=== PATIENT | male | born 1960 | race Two or more races ===

== ENCOUNTER 2022-08-20 21:26 | Emergency (ER) | payer MEDICAID, OTHER ==
[~2022-08-20] VITALS: Ht 172.7 cm; Wt 110.0 kg
[2022-08-20] MEDS ORDERED: hydrALAZINE HCL 20 MG/ML VL IV ONE (22:15)
[2022-08-20] MEDS ORDERED: MORPHINE SULFATE 4 MG/ML SYR/VIAL IV ONE (22:15)
[2022-08-20] MEDS ORDERED: ONDANSETRON HCL 4 MG/2 ML VIAL ONE (23:12)
[2022-08-20 23:22] LABS: Basophils # (auto) 0.1 10 ^3/uL (0-0.2); Basophils % (auto) 0.5 % (0.0-2.0); Eosinophils # (auto) 0 10 ^3/uL (0-0.8); Eosinophils % (auto) 0.1 % (0.0-7.0); Hematocrit 41.9 % (41.0-53.0); Hemoglobin 14.2 g/dL (13.5-17.5); Lymphocytes # (auto) 1.1 10 ^3/uL (0.4-5.4); Lymphocytes % (auto) 9.8 % (10.0-50.0); Mean Corpuscular Hemoglobin 30.4 pg (28.0-32.0); Mean Corpuscular Hgb Conc. 33.8 g/dL (32.0-36.0); Mean Corpuscular Volume 89.8 fL (80.0-100.0); Monocytes # (auto) 0.7 10 ^3/uL (0-1.3); Monocytes % (auto) 5.8 % (0.0-12.0); Neutrophils # (auto) 9.7 10 ^3/uL (1.6-8.6); Neutrophils % (auto) 83.8 % (37.0-80.0); Red Blood Cells 4.67 10^6/uL (4.5-5.90); Red Cell Distribution Width 13.6 % (11.8-14.3); White Blood Cell 11.5 10^3/uL (4.4-10.8)
[2022-08-20] MEDS ORDERED: ONDANSETRON HCL 4 MG/2 ML VIAL IV ONE (23:30)
[2022-08-20 23:45] LABS: Albumin 3.5 g/dL (3.4-5.0); BUN/Creatinine Ratio 14.9; Calcium 8.1 mg/dL (8.5-10.1); Potassium 3.3 mmol/L (3.5-5.1)
[2022-08-20 23:48] LABS: Bilirubin, Total 0.5 mg/dL (0.2-1.0); Total Protein 7.9 g/dL (6.4-8.2)
[2022-08-21] MEDS ORDERED: hydrALAZINE HCL 20 MG/ML VL IV ONE
[2022-08-21] MEDS ORDERED: KETOROLAC TROMETH 30 MG/ML 1ML VIAL IV ONE (01:30)
[2022-08-21] MEDS ORDERED: KETOROLAC TROMETH 60MG/2ML VIAL IM ONE (01:30)
[2022-08-21] MEDS ORDERED: ONDANSETRON HCL 4 MG/2 ML VIAL IV ONE (02:00)
[2022-08-21 02:51] VITALS: BP 199/62
== END 2022-08-21 03:07 | disposition home or self-care (01) ==
LOC: EDBD 21:26 → ER 21:29
DX: R51.9 Headache, unspecified (principal); E11.9 Type 2 diabetes mellitus without complications; R42 Dizziness and giddiness
CPT/HCPCS: 36415; 70450; 80053; 83880; 84484; 85025; 93005; 96374; 96375; 96376; 99285; J0360; J1885; J2270; J2405

== ENCOUNTER 2022-08-21 18:41 | Inpatient (IN) | payer MEDICAID ==
[~2022-08-21] VITALS: Ht 180.3 cm; Wt 127.2 kg
[2022-08-21] MEDS ORDERED: SODIUM CHLORIDE 0.9% 1,000 ML IV ONE (19:30)
[2022-08-21] MEDS ORDERED: VANCOMYCIN PER PHARMACY 1,000 MG IV SCH (19:30)
[2022-08-21] MEDS ORDERED: SODIUM CHLORIDE 0.9% 3,550 ML IV ONE (19:30)
[2022-08-21 19:47] LABS: Basophils # (auto) 0.1 10 ^3/uL (0-0.2); Basophils % (auto) 0.3 % (0.0-2.0); Eosinophils # (auto) 0.1 10 ^3/uL (0-0.8); Eosinophils % (auto) 0.6 % (0.0-7.0); Hematocrit 43.7 % (41.0-53.0); Hemoglobin 14.4 g/dL (13.5-17.5); Lymphocytes # (auto) 2.8 10 ^3/uL (0.4-5.4); Lymphocytes % (auto) 15.3 % (10.0-50.0); Mean Corpuscular Hemoglobin 29.6 pg (28.0-32.0); Mean Corpuscular Volume 89.7 fL (80.0-100.0); Monocytes # (auto) 1.7 10 ^3/uL (0-1.3); Monocytes % (auto) 9.4 % (0.0-12.0); Neutrophils # (auto) 13.6 10 ^3/uL (1.6-8.6); Neutrophils % (auto) 74.4 % (37.0-80.0); Red Blood Cells 4.87 10^6/uL (4.5-5.90); Red Cell Distribution Width 13.8 % (11.8-14.3); White Blood Cell 18.2 10^3/uL (4.4-10.8)
[2022-08-21] MEDS ORDERED: VANCOMYCIN 1GM/250ML 250 ML IV ONE (20:15)
[2022-08-21 20:33] LABS: Albumin 3.5 g/dL (3.4-5.0); BUN/Creatinine Ratio 11.2; Calcium 8.5 mg/dL (8.5-10.1); Magnesium 1.7 mg/dL (1.6-2.6); Potassium 3.1 mmol/L (3.5-5.1)
[2022-08-21 20:36] LABS: Bilirubin, Total 0.8 mg/dL (0.2-1.0); Total Protein 7.6 g/dL (6.4-8.2)
[2022-08-21 21:00] LABS: Lactic Acid w/Reflex 3.1 mmol/L (0.4-2.0)
[2022-08-21] MEDS ORDERED: METOCLOPRAMIDE HCL 5MG/ml INJ 2ml VIAL IV ONE (21:15)
[2022-08-21] MEDS ORDERED: diphenhdrAMINE HCL 50 MG/1 ML VL IV ONE (21:15)
[2022-08-21] MEDS ORDERED: KETOROLAC TROMETH 30 MG/ML 1ML VIAL IV ONE (21:15)
[2022-08-21] MEDS: PIPERACILLIN-TAZO 4.5GM 100 ML IV SCH (22:00)
[2022-08-22 00:54] LABS: BUN/Creatinine Ratio 12.3; Calcium 7.7 mg/dL (8.5-10.1)
[2022-08-22 00:57] LABS: Bilirubin, Total 0.8 mg/dL (0.2-1.0)
[2022-08-22] MEDS ORDERED: POTASSIUM EFFERVESENT TAB 25 MEQ PO ONE (01:30)
[2022-08-22] MEDS ORDERED: ACETAMINOPHEN 325 MG TAB PO PRN (05:00)
[2022-08-22] MEDS ORDERED: DEXTROSE (50%) 50ML SYRG IV PRN (05:00)
[2022-08-22] MEDS ORDERED: DOCUSATE SOD 100 MG CAP PO PRN (05:00)
[2022-08-22] MEDS ORDERED: ALBUMIN 25% 100 ML IV ONE (05:00)
[2022-08-22] MEDS ORDERED: NITROGLYCERIN 0.4 MG SL TAB SL PRN (05:45)
[2022-08-22] MEDS ORDERED: MORPHINE SULFATE INJ 2 MG/ml SYRG IV PRN (05:45)
[2022-08-22 06:09] LABS: Basophils # (auto) 0.1 10 ^3/uL (0-0.2); Basophils % (auto) 0.9 % (0.0-2.0); Eosinophils # (auto) 0.3 10 ^3/uL (0-0.8); Hematocrit 39.1 % (41.0-53.0); Lymphocytes # (auto) 2.6 10 ^3/uL (0.4-5.4); Lymphocytes % (auto) 19.7 % (10.0-50.0); Mean Corpuscular Hgb Conc. 33.1 g/dL (32.0-36.0); Mean Corpuscular Volume 90.6 fL (80.0-100.0); Monocytes # (auto) 1.8 10 ^3/uL (0-1.3); Monocytes % (auto) 13.2 % (0.0-12.0); Neutrophils # (auto) 8.6 10 ^3/uL (1.6-8.6); Neutrophils % (auto) 64.2 % (37.0-80.0); Nucleated Red Blood Cells % 0.1 %; Red Blood Cells 4.32 10^6/uL (4.5-5.90); Red Cell Distribution Width 13.5 % (11.8-14.3); White Blood Cell 13.4 10^3/uL (4.4-10.8)
[2022-08-22 06:25] LABS: Albumin 2.8 g/dL (3.4-5.0); BUN/Creatinine Ratio 12.2; Potassium 3.7 mmol/L (3.5-5.1)
[2022-08-22 06:28] LABS: Bilirubin, Total 1.1 mg/dL (0.2-1.0); Total Protein 6.7 g/dL (6.4-8.2)
[2022-08-22] MEDS: ACCU-CHEK COMFORT CURVE STRIP VI SCH ×3 (06:37→18:07)
[2022-08-22] MEDS: InsuLIN REG 1unit/0.01ml Soln (100units/ml) SC SCH ×3 (06:49→18:11)
[2022-08-22] MEDS: POTASSIUM CHL 20MEQ/100ML 100 ML IV SCH ×2 (09:23→12:23)
[2022-08-22] MEDS: PIPERACILLIN-TAZO 4.5GM 100 ML IV SCH ×3 (09:24→23:59)
[2022-08-22] MEDS: HYDROcodone-ACET 5/325MG TAB PO PRN (09:47)
[2022-08-22] MEDS ORDERED: METOPROLOL TARTRATE 50 MG TAB PO SCH (10:00)
[2022-08-22 10:17] LABS: Urine Bacteria MANY /hpf (None Seen); Urine Blood 2+ /uL (Negative); Urine Specific Gravity 1.014 (1.001-1.035); Urine WBC 424 /hpf (0 - 3); Urine WBC Clumps PRESENT /hpf (None Seen)
[2022-08-22] MEDS ORDERED: POTASSIUM CHL 20MEQ/100ML 100 ML IV SCH (12:15)
[2022-08-22] MEDS: HEPARIN SODIUM (PORCINE) 5000 UNITS/ML 1ML VIAL SC SCH ×2 (12:16→21:37)
[2022-08-22] MEDS: FAMOTIDINE (10MG/ML) 2ML VL IV SCH (12:20)
[2022-08-22] MEDS: VANCOMYCIN 1GM/250ML 250 ML IV SCH (14:53)
[2022-08-22] MEDS: hydrALAZINE HCL 20 MG/ML VL IV PRN (17:16)
[2022-08-22] MEDS: ONDANSETRON HCL 4 MG/2 ML VIAL IV PRN (17:17)
[2022-08-22] MEDS: SODIUM CHLORIDE 0.9% 1,000 ML IV SCH (21:40)
[2022-08-22 22:00] VITALS: BP 195/86
[2022-08-23] MEDS: ACCU-CHEK COMFORT CURVE STRIP VI SCH ×5 (00:26→23:35)
[2022-08-23] MEDS: InsuLIN REG 1unit/0.01ml Soln (100units/ml) SC SCH ×5 (00:30→23:36)
[2022-08-23 05:31] VITALS: BP 154/93
[2022-08-23 05:54] LABS: Basophils # (auto) 0.1 10 ^3/uL (0-0.2); Basophils % (auto) 0.5 % (0.0-2.0); Eosinophils # (auto) 0.2 10 ^3/uL (0-0.8); Eosinophils % (auto) 2.1 % (0.0-7.0); Hematocrit 37.4 % (41.0-53.0); Hemoglobin 12.4 g/dL (13.5-17.5); Lymphocytes # (auto) 2.6 10 ^3/uL (0.4-5.4); Lymphocytes % (auto) 22.5 % (10.0-50.0); Mean Corpuscular Hemoglobin 30.1 pg (28.0-32.0); Mean Corpuscular Hgb Conc. 33.2 g/dL (32.0-36.0); Mean Corpuscular Volume 90.8 fL (80.0-100.0); Monocytes # (auto) 1.3 10 ^3/uL (0-1.3); Monocytes % (auto) 11.7 % (0.0-12.0); Neutrophils # (auto) 7.2 10 ^3/uL (1.6-8.6); Neutrophils % (auto) 63.2 % (37.0-80.0); Red Blood Cells 4.11 10^6/uL (4.5-5.90); Red Cell Distribution Width 13.8 % (11.8-14.3); White Blood Cell 11.5 10^3/uL (4.4-10.8)
[2022-08-23 06:03] LABS: Calcium 7.7 mg/dL (8.5-10.1); Potassium 3.3 mmol/L (3.5-5.1)
[2022-08-23 06:08] LABS: BUN/Creatinine Ratio 7.3; Total Protein 6.3 g/dL (6.4-8.2)
[2022-08-23] MEDS: PIPERACILLIN-TAZO 4.5GM 100 ML IV SCH ×4 (06:26→22:06)
[2022-08-23 09:00] VITALS: BP_SYST 154; BP_SYST 171; BP_DIAS 77; BP_DIAS 93
[2022-08-23] MEDS ORDERED: POTA-180 PO (10:17)
[2022-08-23] MEDS ORDERED: DOXA1TAB50 PO (10:17)
[2022-08-23] MEDS ORDERED: INSU75IN2 SC (10:17)
[2022-08-23] MEDS ORDERED: METF-372 PO (10:17)
[2022-08-23] MEDS ORDERED: DILT-14 PO (10:17)
[2022-08-23] MEDS ORDERED: GABA300C10 PO (10:17)
[2022-08-23] MEDS ORDERED: LOSA-39 PO (10:17)
[2022-08-23] MEDS ORDERED: FURO40TA4 PO (10:17)
[2022-08-23] MEDS: FAMOTIDINE (10MG/ML) 2ML VL IV SCH (11:35)
[2022-08-23] MEDS: hydrALAZINE HCL 20 MG/ML VL IV PRN ×2 (11:35)
[2022-08-23] MEDS: VANCOMYCIN 1GM/250ML 250 ML IV SCH (11:36)
[2022-08-23] MEDS: HEPARIN SODIUM (PORCINE) 5000 UNITS/ML 1ML VIAL SC SCH ×2 (11:42→22:08)
[2022-08-23 12:41] VITALS: BP 179/66
[2022-08-23] MEDS ORDERED: DILT60TA PO (13:01)
[2022-08-23] MEDS ORDERED: TAM04C PO (13:01)
[2022-08-23] MEDS ORDERED: LISI40TA11 PO (13:01)
[2022-08-23] MEDS ORDERED: METO-159 PO (13:01)
[2022-08-23] MEDS ORDERED: METOPROLOL SUCCINATE XL 50 MG TAB PO ONE (14:00)
[2022-08-23] MEDS ORDERED: POTASSIUM CHL 20 Meq TABLET PO ONE (14:00)
[2022-08-23] MEDS ORDERED: FUROSEMIDE 40 MG/4 ML VIAL IV ONE (14:00)
[2022-08-23] MEDS: SODIUM CHLORIDE 0.9% 1,000 ML IV SCH ×2 (14:20)
[2022-08-23] MEDS ORDERED: FUROSEMIDE 40 MG TAB PO ONE (15:00)
[2022-08-23 17:00] VITALS: BP 173/87
[2022-08-23 19:29] LABS: Cholesterol 76 mg/dL (< 200)
[2022-08-23 19:31] LABS: HDL Cholesterol 28 mg/dL (40-59); LDL Cholesterol 40 mg/dL (< 100); Triglycerides 116 mg/dL (< 150)
[2022-08-23 22:00] VITALS: BP 122/44
[2022-08-23] MEDS: POTASSIUM CHL 10 Meq TABLET PO SCH (22:06)
[2022-08-23] MEDS: LISINOPRIL 20 MG TAB PO SCH (22:09)
[2022-08-23] MEDS: GENTAMICIN OPTH sol 0.3% 5ml LEFTEYE SCH (22:19)
[2022-08-24 05:00] VITALS: BP 150/77
[2022-08-24] MEDS: PIPERACILLIN-TAZO 4.5GM 100 ML IV SCH ×3 (05:38→23:02)
[2022-08-24] MEDS: GENTAMICIN OPTH sol 0.3% 5ml LEFTEYE SCH ×4 (05:38→22:59)
[2022-08-24] MEDS: ACCU-CHEK COMFORT CURVE STRIP VI SCH ×3 (05:54→18:04)
[2022-08-24] MEDS: InsuLIN REG 1unit/0.01ml Soln (100units/ml) SC SCH ×3 (05:56→18:05)
[2022-08-24] MEDS: SODIUM CHLORIDE 0.9% 1,000 ML IV SCH ×2 (06:19→23:40)
[2022-08-24 07:18] LABS: BUN/Creatinine Ratio 7.2; Calcium 8.1 mg/dL (8.5-10.1); Potassium 3.7 mmol/L (3.5-5.1)
[2022-08-24 09:00] VITALS: BP 165/63
[2022-08-24] MEDS ORDERED: MAGNESIUM SULFATE 1GM/100ML 100 ML IV ONE (09:30)
[2022-08-24] MEDS ORDERED: POTASSIUM CHL 20 Meq TABLET PO SCH (10:00)
[2022-08-24] MEDS ORDERED: FUROSEMIDE 40 MG/4 ML VIAL IV SCH (10:00)
[2022-08-24] MEDS: POTASSIUM CHL 10 Meq TABLET PO SCH ×2 (10:22→23:00)
[2022-08-24] MEDS: LISINOPRIL 20 MG TAB PO SCH ×2 (10:23→23:00)
[2022-08-24] MEDS: FUROSEMIDE 40 MG TAB PO SCH (10:23)
[2022-08-24] MEDS: METOPROLOL SUCCINATE XL 50 MG TAB PO SCH (10:24)
[2022-08-24] MEDS: HEPARIN SODIUM (PORCINE) 5000 UNITS/ML 1ML VIAL SC SCH ×2 (10:28→23:01)
[2022-08-24] MEDS: HYDROcodone-ACET 5/325MG TAB PO PRN (12:41)
[2022-08-24] MEDS: hydrALAZINE HCL 20 MG/ML VL IV PRN (12:41)
[2022-08-24 13:00] VITALS: BP 160/78
[2022-08-24 17:00] VITALS: BP 159/61
[2022-08-24 22:00] VITALS: BP 162/60
[2022-08-25] MEDS: ACCU-CHEK COMFORT CURVE STRIP VI SCH ×4 (00:21→17:49)
[2022-08-25] MEDS: InsuLIN REG 1unit/0.01ml Soln (100units/ml) SC SCH ×4 (00:26→17:49)
[2022-08-25] MEDS: hydrALAZINE HCL 20 MG/ML VL IV PRN ×2 (02:38→17:11)
[2022-08-25 05:00] VITALS: BP 158/49
[2022-08-25] MEDS: PIPERACILLIN-TAZO 4.5GM 100 ML IV SCH ×3 (06:04→21:32)
[2022-08-25] MEDS: GENTAMICIN OPTH sol 0.3% 5ml LEFTEYE SCH ×4 (06:06→21:33)
[2022-08-25] MEDS: ONDANSETRON HCL 4 MG/2 ML VIAL IV PRN (06:24)
[2022-08-25 09:11] VITALS: BP 156/62
[2022-08-25] MEDS: HEPARIN SODIUM (PORCINE) 5000 UNITS/ML 1ML VIAL SC SCH ×2 (09:43→21:34)
[2022-08-25] MEDS: FUROSEMIDE 40 MG TAB PO SCH (10:08)
[2022-08-25] MEDS: METOPROLOL SUCCINATE XL 50 MG TAB PO SCH (10:08)
[2022-08-25] MEDS: LISINOPRIL 20 MG TAB PO SCH ×2 (10:09→21:33)
[2022-08-25] MEDS: POTASSIUM CHL 10 Meq TABLET PO SCH ×2 (10:10→21:33)
[2022-08-25 13:30] VITALS: BP 162/60
[2022-08-25 16:30] VITALS: BP 170/90
[2022-08-25] MEDS: SODIUM CHLORIDE 0.9% 1,000 ML IV SCH (17:11)
[2022-08-25 21:30] VITALS: BP 163/64
[2022-08-26] MEDS: InsuLIN REG 1unit/0.01ml Soln (100units/ml) SC SCH ×4 (00:37→18:24)
[2022-08-26 05:00] VITALS: BP 148/59
[2022-08-26] MEDS: ACCU-CHEK COMFORT CURVE STRIP VI SCH ×4 (05:52→18:25)
[2022-08-26] MEDS: PIPERACILLIN-TAZO 4.5GM 100 ML IV SCH ×3 (05:56→22:51)
[2022-08-26] MEDS: GENTAMICIN OPTH sol 0.3% 5ml LEFTEYE SCH ×4 (05:56→22:51)
[2022-08-26 09:00] VITALS: BP 146/62
[2022-08-26] MEDS: SODIUM CHLORIDE 0.9% 1,000 ML IV SCH (09:00)
[2022-08-26] MEDS: LISINOPRIL 20 MG TAB PO SCH ×2 (09:12→22:54)
[2022-08-26] MEDS: POTASSIUM CHL 10 Meq TABLET PO SCH ×2 (09:13→22:53)
[2022-08-26] MEDS: METOPROLOL SUCCINATE XL 50 MG TAB PO SCH (09:13)
[2022-08-26] MEDS: FUROSEMIDE 40 MG TAB PO SCH (09:14)
[2022-08-26] MEDS: hydrALAZINE HCL 20 MG/ML VL IV PRN ×2 (09:14→17:42)
[2022-08-26 09:19] LABS: INR 1.12 (0.9-1.15); Partial Thromboplastin Time 29.5 sec (24.6-33.4)
[2022-08-26] MEDS: HEPARIN SODIUM (PORCINE) 5000 UNITS/ML 1ML VIAL SC SCH ×2 (09:24→22:00)
[2022-08-26 14:30] VITALS: BP 144/60
[2022-08-26 17:10] VITALS: BP 160/61
[2022-08-26] MEDS: HYDROcodone-ACET 5/325MG TAB PO PRN (17:41)
[2022-08-26 22:00] VITALS: BP 159/64
[2022-08-26 23:55] LABS: Urine Bacteria NONE SEEN /hpf (None Seen); Urine Blood 3+ /uL (Negative); Urine Specific Gravity 1.016 (1.001-1.035); Urine WBC 90 /hpf (0 - 3)
[2022-08-27] MEDS: ACCU-CHEK COMFORT CURVE STRIP VI SCH ×4 (00:38→16:51)
[2022-08-27] MEDS: InsuLIN REG 1unit/0.01ml Soln (100units/ml) SC SCH ×4 (00:44→16:52)
[2022-08-27] MEDS: hydrALAZINE HCL 20 MG/ML VL IV PRN (04:19)
[2022-08-27 05:00] VITALS: BP 155/77
[2022-08-27 05:14] LABS: Basophils # (auto) 0 10 ^3/uL (0-0.2); Basophils % (auto) 0.5 % (0.0-2.0); Eosinophils # (auto) 0.4 10 ^3/uL (0-0.8); Eosinophils % (auto) 4.2 % (0.0-7.0); Hematocrit 36.7 % (41.0-53.0); Hemoglobin 12.6 g/dL (13.5-17.5); Lymphocytes # (auto) 2.2 10 ^3/uL (0.4-5.4); Lymphocytes % (auto) 22.1 % (10.0-50.0); Mean Corpuscular Hemoglobin 30.5 pg (28.0-32.0); Mean Corpuscular Hgb Conc. 34.3 g/dL (32.0-36.0); Mean Corpuscular Volume 88.8 fL (80.0-100.0); Monocytes % (auto) 10.7 % (0.0-12.0); Neutrophils # (auto) 6.1 10 ^3/uL (1.6-8.6); Neutrophils % (auto) 62.5 % (37.0-80.0); Red Blood Cells 4.14 10^6/uL (4.5-5.90); Red Cell Distribution Width 13.5 % (11.8-14.3); White Blood Cell 9.7 10^3/uL (4.4-10.8)
[2022-08-27 05:34] LABS: BUN/Creatinine Ratio 10.1; Calcium 7.9 mg/dL (8.5-10.1); Potassium 3.6 mmol/L (3.5-5.1)
[2022-08-27] MEDS: GENTAMICIN OPTH sol 0.3% 5ml LEFTEYE SCH ×3 (05:39→17:31)
[2022-08-27] MEDS: PIPERACILLIN-TAZO 4.5GM 100 ML IV SCH (05:41)
[2022-08-27 09:00] VITALS: BP 109/52
[2022-08-27] MEDS: HEPARIN SODIUM (PORCINE) 5000 UNITS/ML 1ML VIAL SC SCH (09:33)
[2022-08-27] MEDS: METOPROLOL SUCCINATE XL 50 MG TAB PO SCH (09:34)
[2022-08-27] MEDS: FUROSEMIDE 40 MG TAB PO SCH (09:35)
[2022-08-27] MEDS: LISINOPRIL 20 MG TAB PO SCH (09:36)
[2022-08-27] MEDS: POTASSIUM CHL 10 Meq TABLET PO SCH (09:36)
[2022-08-27 12:34] VITALS: BP 154/68
[2022-08-27 17:15] VITALS: BP 143/71
[2022-08-27 19:30] VITALS: BP 133/68
[2022-08-28] MEDS ORDERED: POTASSIUM CHL 20 Meq TABLET PO SCH (10:00)
== END 2022-08-27 21:40 | disposition short-term general hospital (02) | DRG 424 ==
LOC: ER 18:43 → TELE 08-22 05:33 → TELE-EAST 08-22 18:47
PROVIDERS: ADMIT Nurse Practitioner Family; ATTEND Hospitalist
DX: D35.2 Benign neoplasm of pituitary gland (principal); U07.1 COVID-19; E11.40 Type 2 diabetes mellitus with diabetic neuropathy, unspecified; I95.9 Hypotension, unspecified; I11.9 Hypertensive heart disease without heart failure; D44.4 Neoplasm of uncertain behavior of craniopharyngeal duct; E88.09 Other disorders of plasma-protein metabolism, not elsewhere classified; E83.51 Hypocalcemia; E86.0 Dehydration; D32.9 Benign neoplasm of meninges, unspecified; E11.65 Type 2 diabetes mellitus with hyperglycemia; E66.01 Morbid (severe) obesity due to excess calories; E87.6 Hypokalemia; I16.0 Hypertensive urgency; N39.0 Urinary tract infection, site not specified; M47.816 Spondylosis without myelopathy or radiculopathy, lumbar region; Z20.822 Contact with and (suspected) exposure to COVID-19; H49.9 Unspecified paralytic strabismus; G43.909 Migraine, unspecified, not intractable, without status migrainosus; F17.200 Nicotine dependence, unspecified, uncomplicated; M51.36 Other intervertebral disc degeneration, lumbar region; N40.0 Benign prostatic hyperplasia without lower urinary tract symptoms; Z79.4 Long term (current) use of insulin; Z83.3 Family history of diabetes mellitus; Z82.49 Family history of ischemic heart disease and other diseases of the circulatory system; Z68.39 Body mass index [BMI] 39.0-39.9, adult
CPT/HCPCS: 36415; 70450; 71045; 80048; 80053; 80061; 81001; 82962; 83036; 83605; 83735; 83880; 84439; 84443; 84484; 85025; 85610; 85730; 87040; 87086; 87426; 93005; 93306; 93886; 96361; 96365; 96367; 96375; G0378; J1815; J1885; J2405; J2543; J3480; J3490; P9047

== ENCOUNTER 2023-06-20 10:48 | Inpatient (IN) | payer MEDICAID, OTHER ==
[~2023-06-20] VITALS: Ht 175.3 cm; Wt 113.6 kg
[~2023-06-20 10:48] MED LIST: DILT60TA PO; DOXA1TAB50 PO; FURO40TA4 PO; GABA-1250 PO; INSU75IN2 SC; LISI40TA16 PO; LOSA100T58 PO; METF-372 PO; METO-159 PO; POTA-180 PO; TAMS-35 PO
[2023-06-20 11:11] LABS: Basophils # (auto) 0.1 10 ^3/uL (0-0.2); Basophils % (auto) 1.2 % (0.0-2.0); Eosinophils # (auto) 0.1 10 ^3/uL (0-0.8); Eosinophils % (auto) 1.7 % (0.0-7.0); Hematocrit 42.9 % (41.0-53.0); Hemoglobin 14.3 g/dL (13.5-17.5); Lymphocytes # (auto) 2.7 10 ^3/uL (0.4-5.4); Lymphocytes % (auto) 35.2 % (10.0-50.0); Mean Corpuscular Hemoglobin 29.7 pg (28.0-32.0); Mean Corpuscular Hgb Conc. 33.3 g/dL (32.0-36.0); Mean Corpuscular Volume 89.2 fL (80.0-100.0); Monocytes # (auto) 0.5 10 ^3/uL (0-1.3); Monocytes % (auto) 6.1 % (0.0-12.0); Neutrophils # (auto) 4.3 10 ^3/uL (1.6-8.6); Neutrophils % (auto) 55.8 % (37.0-80.0); Nucleated Red Blood Cells % 0.2 %; Red Blood Cells 4.81 10^6/uL (4.5-5.90); Red Cell Distribution Width 14.7 % (11.8-14.3); White Blood Cell 7.6 10^3/uL (4.4-10.8)
[2023-06-20 11:27] LABS: Calcium 8.4 mg/dL (8.5-10.1); Potassium 4.1 mmol/L (3.5-5.1)
[2023-06-20 11:36] LABS: Bilirubin, Total 0.8 mg/dL (0.2-1.0); Total Protein 8.2 g/dL (6.4-8.2)
[2023-06-20 11:51] LABS: INR 1.17 (0.9-1.15); Prothrombin Time 12.2 sec (9.3-11.8)
[2023-06-20 12:22] LABS: Urine Bacteria NONE SEEN /hpf (None Seen); Urine Blood 3+ /uL (Negative); Urine Clarity CLOUDY (Clear); Urine Color Red (Yellow); Urine Protein, UAD 2+ (Negative); Urine Urobilinogen Normal (Negative); Urine WBC 755 /hpf (0 - 3); Urine WBC Clumps PRESENT /hpf (None Seen)
[2023-06-20 12:26] LABS: Urine Specific Gravity 1.013 (1.001-1.035)
[2023-06-20] MEDS ORDERED: cefTRIAXone 1GM/50ML D5W 50 ML IV ONE (13:15)
[2023-06-20] MEDS ORDERED: cloNIDine HCL 0.1 MG TAB PO PRN (13:45)
[2023-06-20] MEDS ORDERED: MORPHINE SULFATE INJ 2 MG/ml SYRG IV PRN ×2 (13:45)
[2023-06-20] MEDS ORDERED: ONDANSETRON HCL 4 MG/2 ML VIAL IV PRN (13:45)
[2023-06-20] MEDS ORDERED: DEXTROSE (50%) 50ML SYRG IV PRN (13:45)
[2023-06-20] MEDS ORDERED: NITROGLYCERIN 0.4 MG SL TAB SL PRN (13:45)
[2023-06-20] MEDS: ACCU-CHEK COMFORT CURVE STRIP VI SCH (18:00)
[2023-06-20 19:35] VITALS: PULSE 75; RESP 16; O2SAT 98
[2023-06-20] MEDS: InsuLIN REG 1unit/0.01ml Soln (100units/ml) SC SCH (19:50)
[2023-06-20] MEDS: HYDROcodone-ACET 5/325MG TAB PO PRN (19:51)
[2023-06-21] MEDS: InsuLIN REG 1unit/0.01ml Soln (100units/ml) SC SCH ×5 (00:56→23:47)
[2023-06-21] MEDS: ACCU-CHEK COMFORT CURVE STRIP VI SCH ×5 (06:08→23:48)
[2023-06-21 06:36] LABS: INR 1.19 (0.9-1.15); Partial Thromboplastin Time 29.2 SEC (24.5-34.5); Prothrombin Time 12.4 sec (9.3-11.8)
[2023-06-21 06:38] LABS: Basophils # (auto) 0.1 10 ^3/uL (0-0.2); Basophils % (auto) 0.9 % (0.0-2.0); Eosinophils # (auto) 0.2 10 ^3/uL (0-0.8); Eosinophils % (auto) 2.2 % (0.0-7.0); Hematocrit 39.9 % (41.0-53.0); Hemoglobin 13.5 g/dL (13.5-17.5); Lymphocytes # (auto) 2.5 10 ^3/uL (0.4-5.4); Lymphocytes % (auto) 34.4 % (10.0-50.0); Mean Corpuscular Hemoglobin 30.2 pg (28.0-32.0); Mean Corpuscular Hgb Conc. 33.9 g/dL (32.0-36.0); Monocytes # (auto) 0.6 10 ^3/uL (0-1.3); Monocytes % (auto) 7.9 % (0.0-12.0); Neutrophils # (auto) 3.9 10 ^3/uL (1.6-8.6); Neutrophils % (auto) 54.6 % (37.0-80.0); Nucleated Red Blood Cells % 0.2 %; Red Blood Cells 4.48 10^6/uL (4.5-5.90); Red Cell Distribution Width 14.6 % (11.8-14.3); White Blood Cell 7.2 10^3/uL (4.4-10.8)
[2023-06-21 06:45] LABS: BUN/Creatinine Ratio 20.8 (10.0-20.0); Calcium 8.3 mg/dL (8.5-10.1); Potassium 3.8 mmol/L (3.5-5.1)
[2023-06-21 08:00] VITALS: PULSE 69; RESP 16; O2SAT 98
[2023-06-21] MEDS ORDERED: dilTIAZem HCL 60 MG TAB PO SCH (10:00)
[2023-06-21] MEDS: DOXAZOSIN MESYL 2 MG TAB PO SCH (10:00)
[2023-06-21] MEDS: FAMOTIDINE 20 MG TAB PO SCH (10:23)
[2023-06-21] MEDS: LISINOPRIL 20 MG TAB PO SCH (10:23)
[2023-06-21] MEDS: METOPROLOL TARTRATE 50 MG TAB PO SCH (10:25)
[2023-06-21] MEDS ORDERED: LIDOCAINE 2% JELLY 11ml (GLYDO) ONE (12:48)
[2023-06-21] MEDS ORDERED: SUCCINYLCHOLINE CHLORIDE 20 MG/ML 10ML VIAL IV ONE (12:48)
[2023-06-21] MEDS ORDERED: MIDAZOLAM HCL 2MG/2ML 2ml VIAL (1mg/ml) ONE (12:53)
[2023-06-21] MEDS ORDERED: fentaNYL CITRATE 100 MCG/2 ML VL ONE (12:53)
[2023-06-21] MEDS ORDERED: MEPERIDINE HCL (50 MG/ML) 1 ML VIAL ONE (12:53)
[2023-06-21] MEDS ORDERED: CIPROFLOXACIN 400MG/200ML 200 ML IV ONE ×2 (13:05→21:45)
[2023-06-21] MEDS ORDERED: ONDANSETRON HCL 4 MG/2 ML VIAL IV PRN (13:30)
[2023-06-21] MEDS ORDERED: LABETALOL HCL 5 MG/ML 4ML SYRINGE IV PRN (13:30)
[2023-06-21] MEDS ORDERED: HYDROmorphone HCL 2 MG/ML VL/or syr IV PRN (13:30)
[2023-06-21] MEDS ORDERED: ACCU-CHEK COMFORT CURVE STRIP VI ONE (13:30)
[2023-06-21] MEDS ORDERED: MIDAZOLAM HCL 2MG/2ML 2ml VIAL (1mg/ml) IV PRN (13:30)
[2023-06-21] MEDS ORDERED: MORPHINE SULFATE 4 MG/ML SYR/VIAL IV PRN (13:30)
[2023-06-21] MEDS ORDERED: ePHEDrine SULFATE 50 MG/ML AMP IV PRN (13:30)
[2023-06-21] MEDS ORDERED: ePHEDrine SULFATE 50 MG/ML AMP IV ONE (13:52)
[2023-06-21] MEDS ORDERED: DexAMETHasone SOD PHOS 10MG/1ML VIAL INJ ONE (14:10)
[2023-06-21] MEDS ORDERED: PROPOFOL 10 MG/ML 20 ML IV ONE (14:10)
[2023-06-21 17:03] VITALS: BP 164/78; PULSE 61; RESP 20; TEMP 97.5; O2SAT 96
[2023-06-21 20:00] VITALS: PULSE 70; PULSE 71; RESP 18; O2SAT 96
[2023-06-21 22:46] VITALS: BP 162/79; PULSE 71; RESP 18; TEMP 97.5; O2SAT 96
[2023-06-22] VITALS (7 sets, daily range): BP systolic 109–146; BP diastolic 47–81; PULSE 57–86; RESP 18–20; TEMP 98–98.3; O2SAT 96–98
[2023-06-22] MEDS ORDERED: DOCUSATE SOD 100 MG CAP PO PRN (03:00)
[2023-06-22] MEDS: InsuLIN REG 1unit/0.01ml Soln (100units/ml) SC SCH ×4 (06:00→23:44)
[2023-06-22] MEDS: ACCU-CHEK COMFORT CURVE STRIP VI SCH ×4 (06:00→23:43)
[2023-06-22 06:19] LABS: Basophils # (auto) 0 10 ^3/uL (0-0.2); Basophils % (auto) 0.2 % (0.0-2.0); Eosinophils # (auto) 0 10 ^3/uL (0-0.8); Hematocrit 41.7 % (41.0-53.0); Hemoglobin 13.9 g/dL (13.5-17.5); Lymphocytes # (auto) 1.3 10 ^3/uL (0.4-5.4); Lymphocytes % (auto) 13.7 % (10.0-50.0); Mean Corpuscular Hgb Conc. 33.3 g/dL (32.0-36.0); Monocytes # (auto) 0.3 10 ^3/uL (0-1.3); Monocytes % (auto) 2.9 % (0.0-12.0); Neutrophils # (auto) 7.8 10 ^3/uL (1.6-8.6); Neutrophils % (auto) 83.2 % (37.0-80.0); Red Blood Cells 4.64 10^6/uL (4.5-5.90); Red Cell Distribution Width 14.5 % (11.8-14.3); White Blood Cell 9.4 10^3/uL (4.4-10.8)
[2023-06-22 06:33] LABS: BUN/Creatinine Ratio 16.3 (10.0-20.0); Calcium 9.1 mg/dL (8.5-10.1); Potassium 4.1 mmol/L (3.5-5.1)
[2023-06-22] MEDS: LISINOPRIL 20 MG TAB PO SCH (10:16)
[2023-06-22] MEDS: FAMOTIDINE 20 MG TAB PO SCH (10:16)
[2023-06-22] MEDS: DOXAZOSIN MESYL 2 MG TAB PO SCH (10:16)
[2023-06-22] MEDS: dilTIAZem 120MG ER CAP PO SCH (10:17)
[2023-06-22] MEDS: METOPROLOL TARTRATE 50 MG TAB PO SCH (10:17)
[2023-06-22] MEDS: HYDROcodone-ACET 5/325MG TAB PO PRN (23:43)
[2023-06-23 05:00] VITALS: BP 127/41; PULSE 57; RESP 16; TEMP 98; O2SAT 100
[2023-06-23] MEDS: ACCU-CHEK COMFORT CURVE STRIP VI SCH ×3 (07:04→18:08)
[2023-06-23] MEDS: InsuLIN REG 1unit/0.01ml Soln (100units/ml) SC SCH ×3 (07:06→18:08)
[2023-06-23 07:21] LABS: Basophils # (auto) 0 10 ^3/uL (0-0.2); Basophils % (auto) 0.4 % (0.0-2.0); Eosinophils # (auto) 0 10 ^3/uL (0-0.8); Eosinophils % (auto) 0.4 % (0.0-7.0); Hematocrit 37.5 % (41.0-53.0); Hemoglobin 12.7 g/dL (13.5-17.5); Lymphocytes # (auto) 2.9 10 ^3/uL (0.4-5.4); Lymphocytes % (auto) 27.5 % (10.0-50.0); Mean Corpuscular Hemoglobin 29.9 pg (28.0-32.0); Mean Corpuscular Hgb Conc. 33.8 g/dL (32.0-36.0); Mean Corpuscular Volume 88.5 fL (80.0-100.0); Monocytes # (auto) 0.7 10 ^3/uL (0-1.3); Monocytes % (auto) 6.9 % (0.0-12.0); Neutrophils # (auto) 6.9 10 ^3/uL (1.6-8.6); Neutrophils % (auto) 64.8 % (37.0-80.0); Nucleated Red Blood Cells % 0.1 %; Red Blood Cells 4.24 10^6/uL (4.5-5.90); Red Cell Distribution Width 14.3 % (11.8-14.3); White Blood Cell 10.6 10^3/uL (4.4-10.8)
[2023-06-23 07:26] LABS: Calcium 8.5 mg/dL (8.5-10.1); Potassium 3.7 mmol/L (3.5-5.1)
[2023-06-23 07:29] LABS: BUN/Creatinine Ratio 31.4 (10.0-20.0)
[2023-06-23 08:00] VITALS: PULSE 60; RESP 18
[2023-06-23 09:00] VITALS: BP 116/60; PULSE 72; RESP 19; TEMP 98.2; O2SAT 98
[2023-06-23] MEDS: DOXAZOSIN MESYL 2 MG TAB PO SCH (10:46)
[2023-06-23] MEDS: dilTIAZem 120MG ER CAP PO SCH (10:46)
[2023-06-23] MEDS: LISINOPRIL 20 MG TAB PO SCH (10:46)
[2023-06-23] MEDS: METOPROLOL TARTRATE 50 MG TAB PO SCH (10:47)
[2023-06-23] MEDS: FAMOTIDINE 20 MG TAB PO SCH (10:47)
[2023-06-23 13:00] VITALS: BP 147/67; PULSE 55; RESP 19; TEMP 97.8; O2SAT 98
[2023-06-23] MEDS ORDERED: CIPR500T4 PO (14:16)
[2023-06-23 16:54] VITALS: BP 109/59; PULSE 57; RESP 19; TEMP 97.2; O2SAT 97
[2023-06-23 17:13] VITALS: BP 116/60; PULSE 72; TEMP 36.2
[2023-06-27] MEDS ORDERED: CIPR-173 PO (04:57)
== END 2023-06-23 18:21 | disposition home or self-care (01) | DRG 446 ==
LOC: ER 10:48 → TELE 13:40 → TELE-WESTW 06-21 12:52
PROVIDERS: ADMIT Hospitalist; ATTEND Hospitalist
PROC: 0T7D8ZZ Dilation of Urethra, Via Natural or Artificial Opening Endoscopic (ICD-10-PCS; 2023-06-21)
PROC: 0VB08ZZ Excision of Prostate, Via Natural or Artificial Opening Endoscopic (ICD-10-PCS; 2023-06-21)
PROC: 0TBC8ZZ Excision of Bladder Neck, Via Natural or Artificial Opening Endoscopic (ICD-10-PCS; principal; 2023-06-21 13:12)
DX: D49.4 Neoplasm of unspecified behavior of bladder (principal); E11.9 Type 2 diabetes mellitus without complications; N39.0 Urinary tract infection, site not specified; I10 Essential (primary) hypertension; R31.0 Gross hematuria; N35.919 Unspecified urethral stricture, male, unspecified site; N47.1 Phimosis; Z82.49 Family history of ischemic heart disease and other diseases of the circulatory system; Z83.3 Family history of diabetes mellitus; Z79.899 Other long term (current) drug therapy; N40.1 Benign prostatic hyperplasia with lower urinary tract symptoms
CPT/HCPCS: 36415; 71045; 74176; 80048; 80053; 81001; 82962; 84484; 85025; 85610; 85730; 93005; 93306; 96365; G0378; J0330; J0696; J1100; J1815; J2250; J2704

== ENCOUNTER 2023-08-14 13:06 | Emergency (ER) | payer MEDICARE, MEDICAID ==
[~2023-08-14] VITALS: Ht 180.3 cm; Wt 106.1 kg
[~2023-08-14 13:06] MED LIST changes: +CIPR-173 PO; +CIPR500T4 PO; -FURO40TA4 PO; -LOSA100T58 PO; -POTA-180 PO; -TAMS-35 PO
[2023-08-14 15:01] LABS: Urine Bacteria NONE SEEN /hpf (None Seen); Urine Blood 2+ /uL (Negative); Urine Budding Yeast MANY /hpf (None Seen); Urine Clarity HAZY (Clear); Urine Color Brown (Yellow); Urine Hyaline Cast FEW /lpf (0 - 2); Urine Protein, UAD 1+ (Negative); Urine Specific Gravity 1.019 (1.001-1.035); Urine WBC 125 /hpf (0 - 3)
[2023-08-14] MEDS ORDERED: CIPR-173 PO (15:03)
[2023-08-14 15:58] VITALS: BP 156/94; PULSE 83; RESP 18; TEMP 98.1; O2SAT 98
[2023-08-14] MEDS ORDERED: TAMS-35 PO (16:20)
[2023-08-15] MEDS ORDERED: CIPR-173 PO (11:40)
== END 2023-08-14 16:31 | disposition home or self-care (01) ==
LOC: ER 13:06
DX: N39.0 Urinary tract infection, site not specified (principal); R33.9 Retention of urine, unspecified; I10 Essential (primary) hypertension; E11.9 Type 2 diabetes mellitus without complications; R30.0 Dysuria
CPT/HCPCS: 51702; 81001

== ENCOUNTER 2023-08-15 10:41 | Emergency (ER) | payer MEDICAID, MEDICARE ==
[~2023-08-15] VITALS: Ht 180.3 cm; Wt 106.2 kg
[~2023-08-15 10:41] MED LIST changes: +TAMS-35 PO
[2023-08-15] MEDS ORDERED: CIPR-173 PO (11:40)
[2023-08-15 11:52] VITALS: BP 165/84; PULSE 92; RESP 18; TEMP 97.5; O2SAT 95
== END 2023-08-15 11:58 | disposition home or self-care (01) ==
LOC: ER 10:41
DX: Z46.6 Encounter for fitting and adjustment of urinary device (principal); R33.9 Retention of urine, unspecified; E11.9 Type 2 diabetes mellitus without complications; I10 Essential (primary) hypertension
CPT/HCPCS: 51702

== ENCOUNTER 2024-01-13 08:31 | Emergency (ER) | payer OTHER, MEDICAID ==
[~2024-01-13] VITALS: Ht 180.3 cm; Wt 109.5 kg
[2024-01-13 08:57] LABS: Basophils # (auto) 0 10 ^3/uL (0-0.2); Basophils % (auto) 0.8 % (0.0-2.0); Eosinophils # (auto) 0 10 ^3/uL (0-0.8); Eosinophils % (auto) 0.5 % (0.0-7.0); Hematocrit 38.8 % (41.0-53.0); Lymphocytes # (auto) 1.9 10 ^3/uL (0.4-5.4); Mean Corpuscular Hemoglobin 29.6 pg (28.0-32.0); Mean Corpuscular Hgb Conc. 33.5 g/dL (32.0-36.0); Mean Corpuscular Volume 88.3 fL (80.0-100.0); Monocytes # (auto) 0.3 10 ^3/uL (0-1.3); Monocytes % (auto) 5.4 % (0.0-12.0); Neutrophils # (auto) 3.7 10 ^3/uL (1.6-8.6); Neutrophils % (auto) 62.3 % (37.0-80.0); Red Cell Distribution Width 14.3 % (11.8-14.3)
[2024-01-13 09:14] LABS: Alanine Aminotransferase 43 U/L (7-40); Alkaline Phosphatase 116 U/L (46-116); Anion Gap 6 (5-15); Aspartate Aminotransferase 47 U/L (13-40); BUN/Creatinine Ratio 19.2 (10.0-20.0); Blood Urea Nitrogen 19 mg/dL (9-23); Calcium 8.5 mg/dL (8.7-10.4); Carbon Dioxide 27 mmol/L (20-30); Chloride 104 mmol/L (98-107); Glucose 244 mg/dL (74-106); Lipase 44 U/L (12-53); Potassium 4.1 mmol/L (3.5-5.1); Sodium 137 mmol/L (136-145)
[2024-01-13 09:15] LABS: Bilirubin, Total 0.6 mg/dL (0.2-1.0); Total Protein 6.8 g/dL (5.7-8.2)
[2024-01-13] MEDS: D5W/SOD CHLO 0.9% 1,000 ML IV ONE (09:17)
[2024-01-13] MEDS: ONDANSETRON HCL 4 MG/2 ML VIAL IV ONE (09:17)
[2024-01-13 09:30] VITALS: PULSE 76; RESP 13; O2SAT 96
[2024-01-13 09:49] VITALS: TEMP 98.1
[2024-01-13 10:05] LABS: Urine Bacteria NONE SEEN /hpf (None Seen); Urine Blood 3+ /uL (Negative); Urine Clarity Clear (Clear); Urine Color PINK (Yellow); Urine Protein, UAD 1+ (Negative); Urine Specific Gravity 1.019 (1.001-1.035); Urine Urobilinogen Normal (Negative); Urine WBC 100 /hpf (0 - 3); Urine pH 6.5 (5.0-8.0)
[2024-01-13] MEDS: cefTRIAXone 1GM/50ML D5W 50 ML IV ONE (10:49)
[2024-01-13 11:13] VITALS: BP 167/78; PULSE 65; RESP 18; O2SAT 97
== END 2024-01-13 11:25 | disposition home or self-care (01) ==
LOC: ER 08:31
DX: N39.0 Urinary tract infection, site not specified (principal); I10 Essential (primary) hypertension; E11.9 Type 2 diabetes mellitus without complications; I25.2 Old myocardial infarction; E78.5 Hyperlipidemia, unspecified; F41.9 Anxiety disorder, unspecified; Z86.73 Personal history of transient ischemic attack (TIA), and cerebral infarction without residual deficits; Z98.890 Other specified postprocedural states; Z79.899 Other long term (current) drug therapy
CPT/HCPCS: 36415; 74176; 80053; 81001; 83690; 85025; 93005; 96365; 96366; 96368; 96375; 99285; J0696; J2405

== ENCOUNTER 2024-03-12 08:35 | Emergency (ER) | payer OTHER, MEDICAID ==
[~2024-03-12] VITALS: Ht 180.3 cm; Wt 109.0 kg
[2024-03-12 09:21] LABS: Basophils # (auto) 0 10 ^3/uL (0-0.2); Basophils % (auto) 0.8 % (0.0-2.0); Eosinophils # (auto) 0 10 ^3/uL (0-0.8); Eosinophils % (auto) 0.6 % (0.0-7.0); Hematocrit 31.7 % (41.0-53.0); Hemoglobin 10.7 g/dL (13.5-17.5); Lymphocytes # (auto) 1.2 10 ^3/uL (0.4-5.4); Lymphocytes % (auto) 28.2 % (10.0-50.0); Mean Corpuscular Hemoglobin 30.8 pg (28.0-32.0); Mean Corpuscular Hgb Conc. 33.8 g/dL (32.0-36.0); Mean Corpuscular Volume 91.2 fL (80.0-100.0); Monocytes # (auto) 0.2 10 ^3/uL (0-1.3); Monocytes % (auto) 5.6 % (0.0-12.0); Neutrophils # (auto) 2.8 10 ^3/uL (1.6-8.6); Neutrophils % (auto) 64.8 % (37.0-80.0); Nucleated Red Blood Cells % 0.1 %; Red Blood Cells 3.48 10^6/uL (4.5-5.90); Red Cell Distribution Width 17.3 % (11.8-14.3); White Blood Cell 4.4 10^3/uL (4.4-10.8)
[2024-03-12 09:40] LABS: Alanine Aminotransferase 61 U/L (7-40); Albumin 3.9 g/dL (3.2-4.8); Alkaline Phosphatase 157 U/L (46-116); Anion Gap 6 (5-15); Aspartate Aminotransferase 43 U/L (13-40); BUN/Creatinine Ratio 14.9 (10.0-20.0); Blood Urea Nitrogen 13 mg/dL (9-23); Calcium 8.4 mg/dL (8.5-10.1); Carbon Dioxide 23 mmol/L (20-30); Chloride 107 mmol/L (98-107); Glucose 328 mg/dL (74-106); Potassium 3.8 mmol/L (3.5-5.1); Sodium 136 mmol/L (136-145)
[2024-03-12 09:41] LABS: Bilirubin, Total 0.5 mg/dL (0.2-1.0); Total Protein 6.6 g/dL (5.7-8.2)
[2024-03-12 10:25] LABS: INR 1.12 (0.9-1.15); Partial Thromboplastin Time 25.8 SEC (24.5-34.5); Prothrombin Time 11.8 sec (9.3-11.8)
[2024-03-12 10:48] LABS: Magnesium 1.9 mg/dL (1.6-2.6)
[2024-03-12] MEDS: SODIUM CHLORIDE 0.9% 500 ML IVB ONE (11:48)
[2024-03-12] MEDS: SODIUM CHLORIDE 0.9% 1,000 ML IV ONE (11:48)
[2024-03-12 12:55] LABS: Urine Bacteria None Seen /hpf (None Seen)
[2024-03-12 13:08] LABS: Urine Blood 3+ /uL (Negative); Urine Clarity Ex.Turbid (Clear); Urine Color Light-Red (Yellow); Urine Protein, UAD 1+ (Negative); Urine Specific Gravity 1.028 (1.001-1.035); Urine Urobilinogen Normal (Negative); Urine WBC 779 /hpf (0 - 3); Urine WBC Clumps PRESENT /hpf (None Seen); Urine pH 5.5 (5.0-9.0)
[2024-03-12] MEDS ORDERED: NITR-87 PO (16:17)
[2024-03-12 17:02] VITALS: BP 138/66; PULSE 80; RESP 16; TEMP 97.5; O2SAT 97
[2024-03-12] MEDS: cefTRIAXone 1GM/50ML D5W 50 ML IV ONE (17:12)
== END 2024-03-12 17:39 | disposition home or self-care (01) ==
LOC: ER 08:35 → EDBD 08:35 → ER 17:39
DX: D50.0 Iron deficiency anemia secondary to blood loss (chronic) (principal); E11.65 Type 2 diabetes mellitus with hyperglycemia; N39.0 Urinary tract infection, site not specified; R53.1 Weakness; E78.5 Hyperlipidemia, unspecified; Z86.73 Personal history of transient ischemic attack (TIA), and cerebral infarction without residual deficits
CPT/HCPCS: 36415; 70450; 71046; 80053; 81001; 83735; 84484; 85025; 85610; 85730; 93005; 96361; 96365; 99285; J0696; J7030; J7040

== ENCOUNTER 2024-03-15 09:23 | Emergency (ER) | payer OTHER, MEDICAID ==
[~2024-03-15] VITALS: Ht 180.3 cm; Wt 111.5 kg
[~2024-03-15 09:23] MED LIST changes: +NITR-87 PO
[2024-03-15 10:16] VITALS: PULSE 73; RESP 15; O2SAT 99
[2024-03-15 11:00] VITALS: TEMP 98.1
[2024-03-15 11:02] LABS: Basophils # (auto) 0.1 10 ^3/uL (0-0.2); Basophils % (auto) 0.8 % (0.0-2.0); Eosinophils # (auto) 0 10 ^3/uL (0-0.8); Eosinophils % (auto) 0.3 % (0.0-7.0); Hematocrit 36.8 % (41.0-53.0); Hemoglobin 12.4 g/dL (13.5-17.5); Lymphocytes # (auto) 1.4 10 ^3/uL (0.4-5.4); Lymphocytes % (auto) 14.7 % (10.0-50.0); Mean Corpuscular Hemoglobin 30.5 pg (28.0-32.0); Mean Corpuscular Hgb Conc. 33.6 g/dL (32.0-36.0); Mean Corpuscular Volume 90.8 fL (80.0-100.0); Monocytes # (auto) 0.5 10 ^3/uL (0-1.3); Neutrophils # (auto) 7.5 10 ^3/uL (1.6-8.6); Neutrophils % (auto) 79.2 % (37.0-80.0); Nucleated Red Blood Cells % 0.1 %; Red Blood Cells 4.06 10^6/uL (4.5-5.90); Red Cell Distribution Width 17.7 % (11.8-14.3); White Blood Cell 9.5 10^3/uL (4.4-10.8)
[2024-03-15 11:24] LABS: INR 1.16 (0.9-1.15); Partial Thromboplastin Time 26.2 SEC (24.5-34.5); Prothrombin Time 12.2 sec (9.3-11.8)
[2024-03-15 11:27] LABS: Alanine Aminotransferase 63 U/L (7-40); Albumin 4.3 g/dL (3.2-4.8); Alkaline Phosphatase 112 U/L (46-116); Anion Gap 5 (5-15); Aspartate Aminotransferase 71 U/L (13-40); BUN/Creatinine Ratio 18.4 (10.0-20.0); Blood Urea Nitrogen 18 mg/dL (9-23); Calcium 9.1 mg/dL (8.5-10.1); Carbon Dioxide 27 mmol/L (20-30); Chloride 105 mmol/L (98-107); Potassium 3.9 mmol/L (3.5-5.1); Sodium 137 mmol/L (136-145)
[2024-03-15 11:28] LABS: Bilirubin, Total 0.5 mg/dL (0.2-1.0); Total Protein 7.3 g/dL (5.7-8.2)
[2024-03-15 11:29] LABS: Glucose 140 mg/dL (74-106)
[2024-03-15] MEDS: SODIUM CHLORIDE 0.9% 1,000 ML IV ONE (12:03)
[2024-03-15 15:02] VITALS: BP 151/80; PULSE 66; RESP 14; O2SAT 95
== END 2024-03-15 15:09 | disposition home or self-care (01) ==
LOC: EDBD 09:23 → ER 09:23
DX: R31.9 Hematuria, unspecified (principal); N32.89 Other specified disorders of bladder; F41.9 Anxiety disorder, unspecified; E11.9 Type 2 diabetes mellitus without complications; E78.5 Hyperlipidemia, unspecified; I10 Essential (primary) hypertension; I25.2 Old myocardial infarction; Z95.0 Presence of cardiac pacemaker; Z86.73 Personal history of transient ischemic attack (TIA), and cerebral infarction without residual deficits; Z79.899 Other long term (current) drug therapy
CPT/HCPCS: 36415; 70450; 80053; 85025; 85610; 85730; 96360; 99284; J7030; 96361

== ENCOUNTER 2024-04-10 05:55 | Inpatient (IN) | payer OTHER, MEDICAID ==
[~2024-04-10] VITALS: Ht 180.3 cm; Wt 106.2 kg
[2024-04-10 06:55] VITALS: O2SAT 98
[2024-04-10 06:55] LABS: Basophils # (auto) 0.1 10 ^3/uL (0-0.2); Basophils % (auto) 0.9 % (0.0-2.0); Eosinophils # (auto) 0.2 10 ^3/uL (0-0.8); Eosinophils % (auto) 1.9 % (0.0-7.0); Hematocrit 34.9 % (41.0-53.0); Hemoglobin 11.4 g/dL (13.5-17.5); Lymphocytes # (auto) 1.7 10 ^3/uL (0.4-5.4); Lymphocytes % (auto) 20.4 % (10.0-50.0); Mean Corpuscular Hemoglobin 30.1 pg (28.0-32.0); Mean Corpuscular Hgb Conc. 32.8 g/dL (32.0-36.0); Mean Corpuscular Volume 91.7 fL (80.0-100.0); Monocytes # (auto) 0.6 10 ^3/uL (0-1.3); Monocytes % (auto) 7.4 % (0.0-12.0); Neutrophils # (auto) 5.9 10 ^3/uL (1.6-8.6); Neutrophils % (auto) 69.4 % (37.0-80.0); Red Cell Distribution Width 16.1 % (11.8-14.3); White Blood Cell 8.5 10^3/uL (4.4-10.8)
[2024-04-10] MEDS ORDERED: cloNIDine HCL 0.1 MG TAB PO ONE (07:00)
[2024-04-10 07:14] LABS: Alanine Aminotransferase 26 U/L (7-40); Alkaline Phosphatase 112 U/L (46-116); Anion Gap 6 (5-15); BUN/Creatinine Ratio 13.8 (10.0-20.0); Blood Urea Nitrogen 17 mg/dL (9-23); Carbon Dioxide 24 mmol/L (20-30); Chloride 106 mmol/L (98-107); Glucose 176 mg/dL (74-106); Sodium 136 mmol/L (136-145)
[2024-04-10 07:15] LABS: Albumin 4.3 g/dL (3.2-4.8); Aspartate Aminotransferase 35 U/L (13-40); Bilirubin, Total 0.3 mg/dL (0.2-1.0); Total Protein 7.2 g/dL (5.7-8.2)
[2024-04-10] MEDS: cloNIDine HCL 0.1 MG TAB PO ONE (08:25)
[2024-04-10 08:54] LABS: Urine Bacteria None Seen /hpf (None Seen)
[2024-04-10 09:11] LABS: Urine Blood 3+ /uL (Negative); Urine Clarity Ex.Turbid (Clear); Urine Color Red (Yellow); Urine Protein, UAD 2+ (Negative); Urine Specific Gravity 1.012 (1.001-1.035); Urine Urobilinogen Normal (Negative); Urine WBC 997 /hpf (0 - 3); Urine WBC Clumps PRESENT /hpf (None Seen); Urine pH 6.5 (5.0-9.0)
[2024-04-10] MEDS: HYDROmorphone HCL 2 MG/ML VL/or syr IV ONE (10:00)
[2024-04-10] MEDS ORDERED: ONDANSETRON HCL 4 MG/2 ML VIAL IV PRN (14:15)
[2024-04-10] MEDS ORDERED: ACETAMINOPHEN 325 MG TAB PO PRN (14:15)
[2024-04-10] MEDS ORDERED: HYDROcodone-ACET 5/325MG TAB PO PRN (14:15)
[2024-04-10 19:35] VITALS: PULSE 79; RESP 11; O2SAT 99
[2024-04-10 22:29] VITALS: BP 145/65; PULSE 69; RESP 20; TEMP 98.3; O2SAT 98
[2024-04-10 22:30] VITALS: BP 145/65; PULSE 69; RESP 20; TEMP 98.3; O2SAT 98
[2024-04-11] VITALS (7 sets, daily range): BP systolic 141–179; BP diastolic 70–91; PULSE 66–87; RESP 17–20; TEMP 97.6–98.5; O2SAT 96–100
[2024-04-11] MEDS: MORPHINE SULFATE INJ 2 MG/ml SYRG IV PRN (00:44)
[2024-04-11 03:24] LABS: Urine Bacteria None Seen /hpf (None Seen)
[2024-04-11 03:33] LABS: Urine Blood 3+ /uL (Negative); Urine Clarity Ex.Turbid (Clear); Urine Protein, UAD 1+ (Negative); Urine Specific Gravity 1.009 (1.001-1.035); Urine Urobilinogen Normal (Negative); Urine WBC 80 /hpf (0 - 3); Urine WBC Clumps PRESENT /hpf (None Seen)
[2024-04-11 03:34] LABS: Urine Color Red (Yellow)
[2024-04-11] MEDS: hydrALAZINE HCL 20 MG/ML VL IV PRN (04:54)
[2024-04-11] MEDS: PHENAZOPYRIDINE HCL 100 MG TAB PO SCH (18:21)
[2024-04-12] VITALS (7 sets, daily range): BP systolic 129–168; BP diastolic 66–92; PULSE 68–90; RESP 16–18; TEMP 97.8–98.4; O2SAT 97–98
== END 2024-04-12 18:00 | disposition home health service (06) | DRG 690 ==
LOC: ER 05:55 → OVERFLOW 14:08 → WEST WING 22:10
PROVIDERS: ADMIT Internal Medicine; ATTEND Internal Medicine
DX: N30.91 Cystitis, unspecified with hematuria (principal); N13.8 Other obstructive and reflux uropathy; N32.89 Other specified disorders of bladder; I10 Essential (primary) hypertension; E11.42 Type 2 diabetes mellitus with diabetic polyneuropathy; E78.5 Hyperlipidemia, unspecified; R31.0 Gross hematuria; R33.8 Other retention of urine; Z79.4 Long term (current) use of insulin; Z83.3 Family history of diabetes mellitus; Z86.73 Personal history of transient ischemic attack (TIA), and cerebral infarction without residual deficits; Z85.51 Personal history of malignant neoplasm of bladder
CPT/HCPCS: 36415; 74176; 80053; 81001; 84484; 85025; 87081; 97163; G0378